=== PATIENT | female | born 1990 | race African-American/Black ===

== ENCOUNTER 2022-02-13 05:13 | Emergency (ER) | payer BC, MEDICAID, SELFPAY ==
--- NOTE | ~2022-02-13 | US_ITS ---
EXAMINATION: US OB <=14 wk fetus w TV DATE: 02/13/2022 07:34 INDICATION: Pelvic pain. . TECHNIQUE: Real-time transabdominal and transvaginal pelvic ultrasound was performed. COMPARISON: None. FINDINGS: TRANSABDOMINAL ULTRASOUND: The uterus measures 7.9 x 5.5 x 7.2 cm. TRANSVAGINAL ULTRASOUND: There are 3 fluid collections in the endometrial complex with the largest de monstrating a mean diameter of 4 mm. No yolk sac or pole is identified. The right ovary measure s 3.3 x 2.8 x 2.5 cm. The left ovary 3.6 x 1.1 x 1.6 cm. There is no free fluid in the pelvis. IMPRESSION: 1. Small fluid collections in the endometrial complex that are indeterminate for gestational sac(s). Spontaneous and ectopic are not excluded. Serial beta-hCGs are recommended. Reviewed, dictated and finalized at location A. IMPRESSION: 1. Small fluid collections in the endometrial complex that are indeterminate f or gestational sac(s). Spontaneous and ectopic are not exclu ded. Serial beta-hCGs are recommended.
[2022-02-13 05:19] VITALS: BP 127/84; PULSE 88; RESP 16; TEMP 36.3
--- NOTE | 2022-02-13 06:15 | ED.ABDPAIN ---
HPI - Abdominal Pain General Chief Complaint: Abdominal Pain <Kb Reynoso MD - Last Filed: 02/13/22 06:17> Stated Complaint: Pelvic/abd pain <Kb Reynoso MD - Last Filed: 02/13/22 06:17> Time Seen by Provider: 02/13/22 05:24 <Kb Reynoso MD - Last Filed: 02/13/22 06:17> History of Present Illness HPI narrative: Patient is a 31-year-old female who presents ER with reports of lower abdominal pain. Ongoing for 2 weeks. Cramping. No radiation. Both sides. No urinary frequency urgency or dysuria. LMP 5 weeks ago. Just had a positive test in the ER. . Cannot describe any aggravating or alleviating factors. Patient has had persistent nausea with this. <Kb Reynoso MD - Last Filed: 02/13/22 06:17> Review of Systems Review of Systems: All systems reviewed & are unremarkable except as noted in HPI and below <Kb Reynoso MD - Last Filed: 02/13/22 06:17> Constitutional: Constitutional: Denies chills and Denies fever(s) <Kb Reynoso MD - Last Filed: 02/13/22 06:17> Cardiovascular: Cardiovascular: Denies chest pain, Denies rapid heart rate and Denies radiating jaw, neck or arm pain <Kb Reynoso MD - Last Filed: 02/13/22 06:17> Respiratory: Respiratory: Denies cough and Denies dyspnea <Kb Reynoso MD - Last Filed: 02/13/22 06:17> Gastrointestinal: Gastrointestinal: Reports abdominal pain, Reports nausea and Denies vomiting <Kb Reynoso MD - Last Filed: 02/13/22 06:17> Genitourinary: Genitourinary: Denies nocturia, Reports pelvic pain and Denies flank pain <Kb Reynoso MD - Last Filed: 02/13/22 06:17> Exam Narrative: GENERAL: Well-appearing, well-nourished, and in no acute distress. HEAD: Normocephalic, atraumatic. EYES: PERRL and EOMI. right eye strabismus. NECK: Supple. CHEST: Clear to auscultation. No respiratory distress. HEART: Regular rate and rhythm. Normal peripheral pulses. ABDOMEN: Soft, nontender, nondistended. EXTREMITIES: Normal range of motion. No edema. SKIN: Warm, dry, no rash. NEURO: Alert and oriented x3. PSYCH: Normal mood and affect. <Kb Reynoso MD - Last Filed: 02/13/22 06:17> Course Course Emergency Course: Care turned to myself at shift change seen by myself agrees initial H&P currently states abdominal pain is resolved repeated on exam is soft and nontender Discussed with patient she is currently visiting from [place] she is G2, P1 : Discussed Dr. Carranza presentation work-up. Guardian agrees with plan for discharge at this time recommends the patient have a repeat beta-hCG on Monday with follow-up in the office Monday Discussed with patient results of workup and diagnosis. Discussed need for follow-up with primary care, proper use of medication, and reasons to return to the emergency department. Patient understands and agrees to current treatment plan discussed with patient need for repeat beta-hCG and follow-up with [facility]. Repeat abdominal exam is soft and nontender <Bill Brantley DO - Last Filed: 02/13/22 09:01> Vital Signs Vital signs: Vital Signs Temperature 97.4 F L 02/13/22 05:19 Pulse Rate 88 02/13/22 05:19 Respiratory Rate 16 02/13/22 05:19 Blood Pressure 127/84 02/13/22 05:19 Oxygen Delivery Room Air 02/13/22 05:19 Temperature 97.4 F L 02/13/22 05:19 Pulse Rate 89 02/13/22 07:02 Respiratory Rate 18 02/13/22 07:02 Blood Pressure 111/78 02/13/22 07:02 Pulse Oximetry 98 02/13/22 07:02 Oxygen Delivery Room Air 02/13/22 05:19 <Kb Reynoso MD - Last Filed: 02/13/22 06:17> Vital Signs Temperature 97.4 F L 02/13/22 05:19 Pulse Rate 88 02/13/22 05:19 Respiratory Rate 16 02/13/22 05:19 Blood Pressure 127/84 02/13/22 05:19 Oxygen Delivery Room Air 02/13/22 05:19 Temperature 97.4 F L 02/13/22 05:19 Pulse Rate 89 02/13/22 07:02 Respiratory Rate 18 02/13/22 07:02 Blood Pressure
[2022-02-13 06:24] LABS: Appearance Urine Clear (Clear); Basophils Percent Auto 0.4 % (0.2-1.2); Bilirubin Urine Negative (Negative); Blood Urine Negative (Negative); Color Urine Yellow (Yellow); Eosinophils Absolute Auto 0.1 K/mm3 (0-0.3); Glucose Urine UA Negative (Negative); Hematocrit 35.3 % (37.0-47.0); Hemoglobin 11.6 g/dL (12.0-15.0); Immature Granulocyte Absolute 0.01 K/mm3 (0.00-0.031); Immature Granulocyte Percent A 0.1 % (0-0.5); Ketones Urine Trace mg/dL (Negative); Leukocyte Esterase Ur Negative LEU/UL (Negative); Lymphocytes Absolute Auto 2.98 K/mm3 (0.9-3.2); Lymphocytes Percent Auto 40.9 % (18.3-44.2); Mean Corpuscular HGB Conc 32.9 g/dl (32-36); Mean Corpuscular Hemoglobin 27.8 pg (26-34); Mean Corpuscular Volume 84.4 fl (80-100); Mean Platelet Volume 9.6 fl (7.4-10.4); Monocytes Absolute Auto 0.5 K/mm3 (0.1-0.6); Monocytes Percent Auto 6.7 % (2.6-8.5); Neutrophils Absolute Auto 3.7 K/mm3 (1.3-6.7); Neutrophils Percent Auto 50.9 % (45.5-73.1); Nitrate Urine Negative (Negative); Platelet Count Result 216 k/mm3 (150-375); Protein Urine Negative (Negative); Red Blood Count 4.18 M/mm3 (4.2-5.4); Red Cell Distribution Width 13.5 % (11.5-14.5); Urobilinogen Urine >=8.0 mg/dL (<2.0); White Blood Count 7.3 K/mm3 (4.5-10.0)
[2022-02-13 06:38] LABS: Anion Gap 6 mmol/L (8-16); Blood Urea Nitrogen 10 mg/dL (7-17); Calcium 8.9 mg/dL (8.4-10.2); Carbon Dioxide 24 mmol/L (22-30); Chloride 107 mmol/L (98-107); Estimated CRCL calculation 120 ml/min; Estimated Glomerular Filt Rate > 60; Glucose 90 mg/dL (65-110); Potassium 4.1 mmol/L (3.4-5.0); Sodium 137 mmol/L (137-145)
[2022-02-13 06:48] LABS: Add Urine Microscopic? YES
[2022-02-13 06:49] LABS: Squamous Epithelial Cell Urine Many /hpf (Few); WBC Urine 0-3 /hpf (0-3)
[2022-02-13 07:02] VITALS: BP 111/78; PULSE 89; RESP 18; O2SAT 98
[2022-02-13 07:55] LABS: Alanine Aminotransferase 14 U/L (6-35); Albumin Level 3.9 g/dL (3.5-5.1); Alkaline Phosphatase 87 U/L (38-126); Aspartate Amino Transferase 21 U/L (14-36); Bilirubin,Total 0.3 mg/dL (0.2-1.3); Lipase 95 U/L (23-300)
[2022-02-13 09:23] VITALS: BP 114/84; PULSE 87; RESP 18; O2SAT 99
== END 2022-02-13 09:24 | disposition home or self-care (01) ==
PROVIDERS: Emergency Medicine; Emergency Provider Emergency Medicine
DX: O26.891 Other specified pregnancy related conditions, first trimester (principal); R10.32 Left lower quadrant pain; R10.31 Right lower quadrant pain; Z3A.01 Less than 8 weeks gestation of pregnancy
CPT/HCPCS: 36415; 76801; 76817; 80048; 80076; 81001; 81025; 83690; 84702; 85025; 86850; 86900; 86901; 99284

== ENCOUNTER 2022-02-15 13:13 | Outpatient (CLI) | payer MEDICAID, SELFPAY | END 2022-02-15 13:14 | disposition home or self-care (01) | PROVIDERS: Visit Provider Emergency Medicine | DX: Z34.90 Encounter for supervision of normal pregnancy, unspecified, unspecified trimester (principal); Z3A.00 Weeks of gestation of pregnancy not specified | CPT/HCPCS: 36415; 84702 ==